=== PATIENT | male | born 1985 | race Caucasian/White ===

== ENCOUNTER 2021-12-17 14:50 | Emergency (ER) | payer MEDICARE, MEDICAID, SELFPAY ==
--- NOTE | 2021-12-17 14:58 | ECG_ITS ---
Test Reason : palpatations Blood Pressure : / mmHG Vent. Rate : 116 BPM Atrial Rate : 116 BPM P-R Int : 118 ms QRS Dur : 084 ms QT Int : 304 ms P-R-T Axes : 058 067 000 degrees QTc Int : 422 ms Sinus tachycardia Nonspecific T wave abnormality Abnormal ECG When compared with ECG of 15-OCT-2015 02:03, No significant change was found Referred By: Generic ED Physician Electronically Signed By:JENN HARPER MD
[2021-12-17 14:59] VITALS: BP 159/80; PULSE 113; RESP 26; TEMP 36.3; O2SAT 97; BMI 28.1
[2021-12-17 15:27] LABS: MANUAL DIFF FLAG NO
[2021-12-17 15:29] LABS: Basophils Percent Auto 0.3 % (0-2); Eosinophils Absolute Auto 0.1 X10*3/uL (0.0-0.4); Eosinophils Percent Auto 1.6 % (0-4); Hematocrit 46.1 % (42.0-52.0); Hemoglobin 15.7 g/dl (14.0-18.0); Imm Gran Abs Auto 0.01 X10*3/uL (0.00-0.03); Imm Gran Pct Auto 0.1 % (0.0-0.4); Lymphocytes Absolute Auto 2.7 X10*3/uL (1.2-4.9); Lymphocytes Percent Auto 39.7 % (20-40); Mean Corpuscular HGB Conc 34.1 g/dl (31.0-36.0); Mean Corpuscular Hemoglobin 31.3 pg (27.0-33.0); Mean Corpuscular Volume 91.8 fL (80.0-98.0); Mean Platelet Volume 9.9 fL (9.4-12.4); Monocytes Absolute Auto 0.5 X10*3/uL (0.1-1.2); Monocytes Percent Auto 7.4 % (2-11); Neutrophils Absolute Auto 3.5 x10*3/uL (2.0-8.3); Neutrophils Percent Auto 50.9 % (45-73); Platelet Count 215 X10*3/uL (160-400); Red Blood Count 5.02 X10*6/uL (4.60-5.80); Red Cell Distribution Width 13.2 % (11.0-16.0); White Blood Count 6.9 X10*3/uL (4.8-10.8)
--- NOTE | 2021-12-17 15:42 | ED.ANXIETY ---
HPI - Anxiety General Chief Complaint: Anxiety Stated Complaint: chest pains Time Seen by Provider: 12/17/21 15:41 Source: patient Mode of arrival: ambulatory Limitations: no limitations History of Present Illness HPI narrative: 36 y/o male presenting to the ER with increasing anxiety and a panic attack associated with chest pains and palpitations. Patient has a history of anxiety and panic attacks intermittently for the last 4 years. He was previously on Ativan but ?came off cold turkey? because he has been going through a court case with his ex for custody of his 5-year-old son. He states this been a 14 month bender for custody and he has been doing everything in his power to gain custody of his son. This recently ended and he 1 the case. He states as soon as he was given custody he had a ?flood of emotions? with increased anxiety. He has a therapist that he talks to once a week or once every other week and he also has a psychiatrist. He is not currently on any medications but he is open to talking about this with his psychiatrist now that the court cases over. He denies any suicidal homicidal ideation and has very future oriented discussions about raising his son. He denies any drugs or alcohol use. MD complaint: anxiety, heart racing and shortness of breath Onset (ago): day(s) Symptoms: dyspnea, chest pain, palpitations and sense of impending doom Severity: moderate Quality: improving Place: work History of similar episodes: Yes Provoking factors: emotional stress Relieving factors: medication and deep breaths Exacerbating factors: thinking about event Associated symptoms: chest pain, shortness of breath and palpitations Related Data Previous Rx's Medication Instructions Recorded lorazepam 1 mg tablet (Ativan) 1 mg PO BID PRN #6 tab 12/17/21 Allergies Allergy/AdvReac Type Severity Reaction Status Date / Time No Known Allergies Allergy Verified 12/17/21 14:59 [No Known Allergies*] Review of Systems Review of Systems: Constitutional: No Fever, No Chills ENT/Mouth: No sore throat, No Rhinorrhea, No Swallowing Difficulty Eyes: No vision changes Cardiovascular: + Chest Pain, + SOB Respiratory: No Cough, No Sputum, No Wheezing, No dyspnea Gastrointestinal: No Nausea, No Vomiting, No Diarrhea, No abdominal Pain Genitourinary: No Dysuria, No Urinary Frequency, No Hematuria Musculoskeletal: No joint pain, No Myalgias Skin: No Skin Lesions, No rash Neuro: No Weakness, No Numbness, No Dizziness, No Headache Psych: + Anxiety/Panic, No Depression, No SI, No HI, No AH, No VH Heme/Lymph: No Bruising, No Lymphadenopathy [facility] Social History Social History Advance Directives: No Advance Directives Information Provided: No Physical Exam Vital Signs: Vital Signs: Last Vital Signs Temp 97.3 F 12/17/21 14:59 Pulse 88 12/17/21 16:29 Resp 18 12/17/21 16:29 BP 135/83 12/17/21 16:29 Pulse Ox 96 12/17/21 16:29 BMI result Body Mass Index 28.1 Appearance: Alert. Oriented X3. No acute distress. Eyes: Pupils equal, round and reactive to light. ENT: Pharynx normal. Neck: Normal inspection. Neck supple. CVS: Tachycardic, regular rhythm, heart rate 110. Pulses normal. Respiratory: No respiratory distress. Breath sounds normal. Skin: Skin warm and dry. Normal skin color. Normal skin turgor. No rashes. Extremities: No lower extremity edema. Neuro/psych: Oriented X 3. No motor deficit. No sensory deficit. CN II-XII intact. anxious, hyperverbal and emotion but insight and judgment are good. no SI. Course Course Course Narrative: 36 y/o male presents to the ER with acute anxiety and panic attack associated with chest pains. He is going through significant stress and recently ended a custody bender with his son and won. He is overwhelmed and had a flood of emotions. Previously on ativan but has been off for years now. He has an established therapist and psychiatrist. He is open to restarting on medications now that his court case is over. Will give a dose of PO ativan now for acute anxiety and reassess. He has no SI or HI, anticiapate he will be able to be discharged home once symptoms improve. Reevaluation(s) Reevaluation #1: EKG ok. trop negative. improved symptoms after ativan. VS normalized. He is stable for d/c home with plan to follow up with his therapist and psychiatrist. MDM - Anxiety Medical Records Attestation: I reviewed the patient's medical records. Lab Data Attestation: I reviewed the patient's lab results. Result diagrams: 12/17/21 15:21 12/17/21 15:21 Labs: Lab Results 12/17/21 12/17/21 12/17/21 Range/Units 15:21 15:21 15:21 WBC 6.9 (4.8-10.8) X10*3/uL RBC 5.02 (4.60-5.80) X10*6/uL Hgb 15.7 (14.0-18.0) g/dl Hct 46.1 (42.0-52.0) % MCV 91.8 (80.0-98.0) fL MCH 31.3 (27.0-33.0) pg MCHC 34.1 (31.0-36.0) g/dl RDW 13.2 (11.0-16.0) % Plt Count 215 (160-400) X10*3/uL MPV 9.9 (9.4-12.4) fL Immature Gran % (Auto) 0.1 (0.0-0.4) % Neut % (Auto) 50.9 (45-73) % Lymph % (Auto) 39.7 (20-40) % [place] % (Auto) 7.4 (2-11) % Eos % (Auto) 1.6 (0-4) % Baso % (Auto) 0.3 (0-2) % Lymph # (Auto) 2.7 (1.2-4.9) X10*3/uL [place] # (Auto) 0.5 (0.1-1.2) X10*3/uL Eos # (Auto) 0.1 (0.0-0.4) X10*3/uL Baso # (Auto) 0.0 (0.0-0.2) X10*3/uL Abs Immat Gran (auto) 0.01 (0.00-0.03) X10*3/uL Absolute Neuts (auto) 3.5 (2.0-8.3) x10*3/uL Absolute Nucleated RBC 0.000 (0.0-0.012) X10*3/uL Nucleated RBC % (auto) 0.0 (0.0-0.2) /100WBC Sodium 140 (135-145) mmol/L Potassium 4.0 (3.3-5.1) mmol/L Chloride 106 (96-108) mmol/L Carbon Dioxide 25 (22-29) mmol/L Anion Gap 13 (12-20) BUN 12 (9-16) mg/dL Creatinine 1.23 (0.5-1.4) mg/dL Estim Creat Clear Calc 88.4 Estimated GFR > 60 Random Glucose 134 H (60-115) mg/dL Calcium 9.9 (8.4-10.2) mg/dL Total Bilirubin 0.4 (0.0-1.0) mg/dL AST 31 (5-37) U/L ALT 62 H (0-40) U/L Alkaline Phosphatase 88 (39-117) U/L Troponin I High Sens < 3.5 (<3.5-35.0) ng/L Total Protein 7.7 (6.5-8.0) g/dL Albumin 4.7 (3.5-5.0) g/dL ECG Data Attestation: I personally reviewed and interpreted this ECG as follows: ECG interpretation date: 12/17/21 ECG interpretation time: 16:02 Interpretation: sinus tachycardia, HR 116 bpm, nonspecific T wave abnormality, no significant change from prior 2016 Critical Care Time Critical Care Time Critical Care Time: No Discharge Plan Discharge Clinical Impression: Acute anxiety Patient Disposition: Home, Self-Care Instructions: Anxiety (ED) Additional Instructions: Your lab workup today was normal. Your EKG was normal. Recommend following up with your therapist and psychiatrist as soon as possible Take the prescribed medication as needed for anxiety - do not drive after taking this medication If you develop new or worsening symptoms call 911 or come back to the ER for further evaluation. Prescriptions: New lorazepam [Ativan] 1 mg tablet 1 mg PO BID PRN (Reason: anxiety) Qty: 6 0RF Referrals: Gabriel Morse MD [Primary Care Provider] - 2 days (anxiety) Stand Alone Forms: Work/School Release Interventions: ED Discharge Assessment Last Done: 12/17/21 16:42
[2021-12-17 15:46] LABS: Alanine Aminotransferase 62 U/L (0-40); Albumin Level 4.7 g/dL (3.5-5.0); Alkaline Phosphatase 88 U/L (39-117); Anion Gap 13 (12-20); Aspartate Amino Transferase 31 U/L (5-37); Bilirubin Total 0.4 mg/dL (0.0-1.0); Blood Urea Nitrogen 12 mg/dL (9-16); Calcium 9.9 mg/dL (8.4-10.2); Carbon Dioxide 25 mmol/L (22-29); Chloride 106 mmol/L (96-108); Creatinine Clr Calc Pharmacy 88.4; Estimated Glomerular Filt Rate > 60; Glucose Random 134 mg/dL (60-115); Sodium 140 mmol/L (135-145); Total Protein 7.7 g/dL (6.5-8.0)
[2021-12-17 15:49] LABS: Troponin-I High Sensitivity < 3.5 ng/L (<3.5-35.0)
[2021-12-17] MEDS: LORazepam 1 MG TABLET PO (15:55)
[2021-12-17 16:29] VITALS: BP 135/83; PULSE 88; RESP 18; O2SAT 96
== END 2021-12-17 16:42 | disposition home or self-care (01) ==
LOC: HO.ED 16:07
PROVIDERS: Emergency Provider Emergency Medicine; PCP Internal Medicine
DX: F41.9 Anxiety disorder, unspecified (principal); R06.02 Shortness of breath; Z72.89 Other problems related to lifestyle; Z65.3 Problems related to other legal circumstances
CPT/HCPCS: 36415; 80053; 84484; 85025; 93005; 99283

== ENCOUNTER 2021-12-28 10:19 | Emergency (ER) | payer MEDICARE, MEDICAID, SELFPAY ==
--- NOTE | ~2021-12-28 | XR_ITS ---
EXAMINATION: XR CHEST CLINICAL INFORMATION: Dyspnea COMPARISON: 05/15/2015 TECHNIQUE: 2 views of the chest were obtained. FINDINGS: Lungs are well-inflated and clear. Trachea is midline in position. No interstitial disease, consolidation or mass. No pulmonary edema, pleural effusion or pneumothorax. Cardiac silhouette and pulmonary vessels are normal in size. The mediastinum and bradley have normal contour. The visualized bones and upper abdomen are unremarkable. XR/XR chest 2V IMPRESSION: No acute cardiopulmonary abnormality. No radiographic evidence of pneumonia.
[2021-12-28 10:23] VITALS: BP 121/54; PULSE 96; RESP 18; TEMP 36.1; O2SAT 97; BMI 27.3
--- NOTE | 2021-12-28 10:39 | ED_ITS ---
HPI - SOB/Dyspnea General Chief Complaint: General Medical Stated Complaint: diff breathing Time Seen by Provider: 12/28/21 10:30 Source: patient Mode of arrival: ambulatory Limitations: no limitations History of Present Illness MD elicited complaint: shortness of breath (feels a pulse in left side of his chest, aware of heart beating) Pertinent past history: other (untreated anxiety) Onset (ago): week(s) Timing: intermittent Severity: mild Exacerbating factors: nothing Relieving factors: nothing Known history of: other (anxiety) Associated symptoms: chest pain and palpitations Treatment prior to arrival: none Related Data Previous Rx's Medication Instructions Recorded lorazepam 1 mg tablet (Ativan) 1 mg PO BID PRN #6 tab 12/17/21 Allergies Allergy/AdvReac Type Severity Reaction Status Date / Time No Known Allergies Allergy Verified 12/28/21 10:26 [No Known Allergies*] Review of Systems Review of Systems: Constitutional : No Fever, No Chills ENT/Mouth : No sore throat, No Rhinorrhea, No Swallowing Difficulty Eyes: No Eye Pain, No Swelling, No Redness Cardiovascular : pos Chest Pain, positive SOB, No Orthopnea, no Edema Respiratory : No Cough, No Sputum, No Wheezing, positive dyspnea Gastrointestinal : No Nausea, No Vomiting, No Diarrhea, No abdominal Pain, No Hematochezia, No Melena Genitourinary : No Dysuria, No Urinary Frequency, No Hematuria Musculoskeletal : No joint pain, No Myalgias Skin : No Skin Lesions, No rash Neuro : No Weakness, No Numbness, No Dizziness, No Headache Psych : No Anxiety/Panic, No Depression Heme/Lymph: No Bruising, No Lymphadenopathy Endocrine : No Polyuria, No Polydipsia All other systems reviewed and are negative [facility] Past Medical History Attestation statement: The following information was validated with the patient. Medical History (Updated 12/28/21 @ 11:28 by Estefanía Nguyen DO) Anxiety Asthma Social History Social History (Updated 12/28/21 @ 10:51 by Estefanía Nguyen DO) Patient Tobacco Use Status: Never used Tobacco Use of substances other than those prescribed or required for medical reasons: No Advance Directives: No Advance Directives Information Provided: Yes Physical Exam Vital Signs: Vital Signs: Last Vital Signs Temp 97 F 12/28/21 10:23 Pulse 96 12/28/21 10:23 Resp 18 12/28/21 10:23 BP 121/54 L 12/28/21 10:23 Pulse Ox 97 12/28/21 10:23 BMI result Body Mass Index 27.3 Appearance: Alert. Oriented X3. No acute distress. Anxious Eyes: Pupils equal, round and reactive to light. ENT: Pharynx normal. Neck: Normal inspection. Neck supple. CVS: Normal heart rate and rhythm. Pulses normal. Respiratory: No respiratory distress. Breath sounds normal. Abdomen: Soft and non-tender. Skin: Skin warm and dry. Normal skin color. Normal skin turgor. Extremities: No lower extremity edema. No calf ttp Neuro: Oriented X 3. No motor deficit. No sensory deficit. Course Course Course Narrative: negative workup stable for DC MDM - SOB/Dyspnea MDM Narrative Medical decision making narrative: 36 yo male with hx of untreated anxiety and asthma comes in with weeks of noticing his heart pumping feeling palpitations and some L sided pain. He feels he is acutely aware of his heart beating. At this time he is PERC negative has no ACS risk factors - will obtain EKG, CXR, troponin x 1. He thinks it could be related to smoking off a dirty pipe x 1 6 years ago. Possibly anxiety. Dispo per results and findings. Lab Data Result diagrams: 12/28/21 10:54 12/28/21 10:54 Labs: Lab Results 12/28/21 12/28/21 12/28/21 Range/Units 10:54 10:54 10:54 WBC 5.4 (4.8-10.8) X10*3/uL RBC 5.07 (4.60-5.80) X10*6/uL Hgb 15.8 (14.0-18.0) g/dl Hct 46.8 (42.0-52.0) % MCV 92.3 (80.0-98.0) fL MCH 31.2 (27.0-33.0) pg MCHC 33.8 (31.0-36.0) g/dl RDW 13.4 (11.0-16.0) % Plt Count 188 (160-400) X10*3/uL MPV 10.0 (9.4-12.4) fL Immature Gran % (Auto) 0.2 (0.0-0.4) % Neut % (Auto) 53.5 (45-73) % Lymph % (Auto) 34.7 (20-40) % [place] % (Auto) 9.4 (2-11) % Eos % (Auto) 2.0 (0-4) % Baso % (Auto) 0.2 (0-2) % Lymph # (Auto) 1.9 (1.2-4.9) X10*3/uL [place] # (Auto) 0.5 (0.1-1.2) X10*3/uL Eos # (Auto) 0.1 (0.0-0.4) X10*3/uL Baso # (Auto) 0.0 (0.0-0.2) X10*3/uL Abs Immat Gran (auto) 0.01 (0.00-0.03) X10*3/uL Absolute Neuts (auto) 2.9 (2.0-8.3) x10*3/uL Absolute Nucleated RBC 0.000 (0.0-0.012) X10*3/uL Nucleated RBC % (auto) 0.0 (0.0-0.2) /100WBC Sodium 140 (135-145) mmol/L Potassium 4.1 (3.3-5.1) mmol/L Chloride 108 (96-108) mmol/L Carbon Dioxide 24 (22-29) mmol/L Anion Gap 12 (12-20) BUN 11 (9-16) mg/dL Creatinine 0.96 (0.5-1.4) mg/dL Estim Creat Clear Calc 103.9 Estimated GFR > 60 Random Glucose 89 (60-115) mg/dL Calcium 9.5 (8.4-10.2) mg/dL Troponin I High Sens < 3.5 (<3.5-35.0) ng/L ECG Data Attestation: I personally reviewed and interpreted this ECG as follows: ECG interpretation date: 12/28/21 ECG interpretation time: 10:48 Interpretation: Rate: 69 Rhythm: NSR [place]: normal Normal P waves. Normal HELENE. Normal QRS complex. ST T wave : normal no SREE qTC: normal prior studies: no acute ischemia The study has been interpreted contemporaneously by me. . Discharge Plan Discharge Clinical Impression: Acute dyspnea, Chest pain Patient Disposition: Home, Self-Care Instructions: Chest Pain (ED), Dyspnea (ED) Additional Instructions: return to ED for any worsening symptoms or concerns normal EKG, normal chest xray, heart marker tests negative Prescriptions: No Action lorazepam [Ativan] 1 mg tablet 1 mg PO BID PRN (Reason: anxiety) Qty: 6 0RF Referrals: Physician,Unknown J [Primary Care Provider] - 2 days (your primary care doctor if this does not get better) Stand Alone Forms: Work/School Release
--- NOTE | 2021-12-28 10:40 | ECG_ITS ---
Test Reason : DYSPNEA Blood Pressure : / mmHG Vent. Rate : 069 BPM Atrial Rate : 069 BPM P-R Int : 124 ms QRS Dur : 086 ms QT Int : 364 ms P-R-T Axes : 060 077 038 degrees QTc Int : 390 ms Normal sinus rhythm Normal ECG When compared with ECG of 17-DEC-2021 14:56, Vent. rate has decreased BY 47 BPM Non-specific change in ST segment in Lateral leads Nonspecific T wave abnormality has replaced inverted T waves in Inferior leads Referred By: Estefanía Nguyen Electronically Signed By:Enrrique Hess
[2021-12-28 10:58] LABS: MANUAL DIFF FLAG NO
--- NOTE | 2021-12-28 10:58 | PC.NURSE ---
pt tearful during EKG and blood draw, reported to this RN that he is nervous . reports he does not have the means to be here all day as he has to get home to his son.
[2021-12-28 11:00] LABS: Basophils Percent Auto 0.2 % (0-2); Eosinophils Absolute Auto 0.1 X10*3/uL (0.0-0.4); Hematocrit 46.8 % (42.0-52.0); Hemoglobin 15.8 g/dl (14.0-18.0); Imm Gran Abs Auto 0.01 X10*3/uL (0.00-0.03); Imm Gran Pct Auto 0.2 % (0.0-0.4); Lymphocytes Absolute Auto 1.9 X10*3/uL (1.2-4.9); Lymphocytes Percent Auto 34.7 % (20-40); Mean Corpuscular HGB Conc 33.8 g/dl (31.0-36.0); Mean Corpuscular Hemoglobin 31.2 pg (27.0-33.0); Mean Corpuscular Volume 92.3 fL (80.0-98.0); Monocytes Absolute Auto 0.5 X10*3/uL (0.1-1.2); Monocytes Percent Auto 9.4 % (2-11); Neutrophils Absolute Auto 2.9 x10*3/uL (2.0-8.3); Neutrophils Percent Auto 53.5 % (45-73); Platelet Count 188 X10*3/uL (160-400); Red Blood Count 5.07 X10*6/uL (4.60-5.80); Red Cell Distribution Width 13.4 % (11.0-16.0); White Blood Count 5.4 X10*3/uL (4.8-10.8)
[2021-12-28 11:14] LABS: Anion Gap 12 (12-20); Blood Urea Nitrogen 11 mg/dL (9-16); Calcium 9.5 mg/dL (8.4-10.2); Carbon Dioxide 24 mmol/L (22-29); Chloride 108 mmol/L (96-108); Creatinine Clr Calc Pharmacy 103.9; Estimated Glomerular Filt Rate > 60; Glucose Random 89 mg/dL (60-115); Potassium 4.1 mmol/L (3.3-5.1); Sodium 140 mmol/L (135-145)
[2021-12-28 11:19] LABS: Troponin-I High Sensitivity < 3.5 ng/L (<3.5-35.0)
== END 2021-12-28 12:02 | disposition home or self-care (01) ==
PROVIDERS: Emergency Provider Emergency Medicine
DX: R07.9 Chest pain, unspecified (principal); R06.00 Dyspnea, unspecified; J45.909 Unspecified asthma, uncomplicated; F41.9 Anxiety disorder, unspecified
CPT/HCPCS: 36415; 71046; 80048; 84484; 85025; 93005; 99283

== ENCOUNTER 2022-01-20 11:01 | Emergency (ER) | payer MEDICARE, MEDICAID, SELFPAY ==
--- NOTE | ~2022-01-20 | CT_ITS ---
EXAMINATION: CT HEAD WITHOUT CONTRAST CT CERVICAL SPINE WITHOUT CONTRAST CLINICAL INFORMATION: Reason for Exam Intermittent headaches/right-sided neck COMPARISON: None. TECHNIQUE: Imaging was performed from the skull base to vertex without intravenous administration of contrast. In addition, helical noncontrast CT imaging was acquired through the cervical spine and source images were reviewed along with axial reconstructions and sagittal and coronal MPRs. This CT examination was performed using dose optimization techniques as appropriate, variously including the following: *Automated exposure control. *Adjustment of mA and/or kV according to patient size (this includes techniques or standardized protocols for targeted exams where dose is matched to indication/reason for exam; i.e. extremities or head). *Use of iterative reconstruction technique. Total exam dose-length product 1251 mGy-cm FINDINGS: HEAD: No intracranial mass, hemorrhage, or midline shift is visualized. The ventricles and sulci are unremarkable. No extra-axial collections are identified. The paranasal sinuses and mastoid air cells are well aerated. CERVICAL SPINE: There is nonspecific straightening of the cervical spine present with mild degenerative disc disease at C5-C6. There is no evidence of acute cervical spine fracture. Vertebral bodies remain normal in height, and alignment is anatomic. No prevertebral or paravertebral soft tissue abnormality is identified. Limited assessment of the lung apices is unremarkable. CT/CT cervical spine wo con IMPRESSION: 1. No acute intracranial pathology. 2. No CT evidence of acute cervical spine fracture or traumatic subluxation.
--- NOTE | ~2022-01-20 | CT_ITS ---
EXAMINATION: CT HEAD WITHOUT CONTRAST CT CERVICAL SPINE WITHOUT CONTRAST CLINICAL INFORMATION: Reason for Exam Intermittent headaches/right-sided neck COMPARISON: None. TECHNIQUE: Imaging was performed from the skull base to vertex without intravenous administration of contrast. In addition, helical noncontrast CT imaging was acquired through the cervical spine and source images were reviewed along with axial reconstructions and sagittal and coronal MPRs. This CT examination was performed using dose optimization techniques as appropriate, variously including the following: *Automated exposure control. *Adjustment of mA and/or kV according to patient size (this includes techniques or standardized protocols for targeted exams where dose is matched to indication/reason for exam; i.e. extremities or head). *Use of iterative reconstruction technique. Total exam dose-length product 1251 mGy-cm FINDINGS: HEAD: No intracranial mass, hemorrhage, or midline shift is visualized. The ventricles and sulci are unremarkable. No extra-axial collections are identified. The paranasal sinuses and mastoid air cells are well aerated. CERVICAL SPINE: There is nonspecific straightening of the cervical spine present with mild degenerative disc disease at C5-C6. There is no evidence of acute cervical spine fracture. Vertebral bodies remain normal in height, and alignment is anatomic. No prevertebral or paravertebral soft tissue abnormality is identified. Limited assessment of the lung apices is unremarkable. CT/CT head/brain wo con IMPRESSION: 1. No acute intracranial pathology. 2. No CT evidence of acute cervical spine fracture or traumatic subluxation.
[2022-01-20 11:46] VITALS: BP 129/83; PULSE 92; RESP 18; TEMP 37.1; O2SAT 98; BMI 28.8
[2022-01-20] MEDS: Lidocaine HCl 2 % MPF 5 ML VIAL SUBCUT ×2 (14:55)
--- NOTE | 2022-01-20 14:57 | ED_ITS ---
HPI - Skin/Abscess/Foreign Bdy General Chief complaint: Skin/Abscess/Foreign Body Stated complaint: R thigh swelling Time Seen by Provider: 01/20/22 14:31 Source: patient Mode of arrival: ambulatory Limitations: no limitations History of Present Illness HPI narrative: 36-year-old male presenting to the ED with complaints of an abscess to the right groin that he noticed over the past few days worse today. Also reports that over the past few months he has been having right-sided neck pain that radiates to the right side of his forehead and he is concerned ?I think I have a tumor growing and I am freaking myself out?. Denies any fevers, chills, dizziness, neck stiffness, chest pain shortness of breath, drainage from the site, rashes, history of MRSA or any other symptoms complaints or concerns at this time. MD complaint: abscess/boil Onset (ago): day(s) (Past few days worse today) Location: genitals (Right Groin ) Severity: moderate Quality: aching and constant Pain Consistency: constant Relieving factors: none Exacerbating factors: palpation Context: none Associated symptoms: denies other symptoms Treatments prior to arrival: none Related Data Previous Rx's Medication Instructions Recorded lorazepam 1 mg tablet (Ativan) 1 mg PO BID PRN #6 tab 12/17/21 acetaminophen 500 mg tablet 1,000 mg PO QID PRN #14 tab 01/20/22 (Tylenol Extra Strength) cephalexin 500 mg capsule 500 mg PO Q6H 10 Days #40 cap 01/20/22 doxycycline hyclate 100 mg tablet 100 mg PO BID 10 Days #20 tab 01/20/22 Allergies Allergy/AdvReac Type Severity Reaction Status Date / Time No Known Allergies Allergy Verified 12/28/21 10:26 [No Known Allergies*] Review of Systems Review of Systems: Constitutional : Denies history of same, Denies any other sites involved, Denies IV drug use, Denies history of MRSA, Denies swollen glands, Denies injury, Denies Fever, Denies Chills, + Sig Pain, Denies Systemic symptoms Cardiovascular : No Chest Pain, No SOB Respiratory : No Dyspnea Gastrointestinal : No abdominal pain Musculoskeletal : +Neck Pain, No Joint Swelling Skin : + abscess, No surrounding erythema, No skin laceration, No Foreign bodies, No spreading rash, Denies bites, Denies discharge, Neuro : + intermittent headaches, No Weakness, No Numbness/tingling Psych : No SI/HI/thoughts of self injury Yes all other systems are reviewed and are negative [facility] Past Medical History Attestation statement: The following information was validated with the patient. Medical History Anxiety Asthma Social History Social History Patient Tobacco Use Status: Never used Tobacco Advance Directives: No Advance Directives Information Provided: Yes Physical Exam Vital Signs: Vital Signs: Last Vital Signs Temp 98.7 F 01/20/22 11:46 Pulse 92 01/20/22 11:46 Resp 18 01/20/22 11:46 BP 129/83 01/20/22 11:46 Pulse Ox 98 01/20/22 11:46 BMI result Body Mass Index 28.8 vital signs have been reviewed as normal and appeared to be correct. Blood pressure normal. Heart rate normal. Respiration rate normal. Temperature normal. Oxygen saturation normal. Appearance: Alert. Oriented X3. No acute distress. Head: Normal external exam. Normocephalic. Atraumatic. Eyes: PERRLA. EOMI. Conjunctiva and sclera normal. Eyelids normal. ENT: Pharynx normal. Uvula midline. Moist mucous membranes. No lesions/ulcerati ons or masses noted on the tongue. Normal voice. No trismus noted. No drooling noted. No muffled voice noted. Neck: Normal inspection. Neck supple. FROM. No adenopathy. Thyroid Normal. No meningeal signs. No neck mass noted. CVS: Normal heart rate and rhythm. Heart sound normal. Pulses normal throughout. No murmurs/rales/gallops. Respiratory: No respiratory distress. Painless inspiration. Breath sounds normal. No wheezes/rales/rhonchi noted. Chest nontender. No signs of trauma noted. No accessory muscle usage noted or decreased air movement noted. Back: Full range of motion noted. Nontender. Patient neuro intact bilaterally and distally on all 4 extremities. Patient's reflexes intact bilaterally and distally on all 4 extremities. No rashes/lesion/induration/fluctuance or signs of infection noted. Skin: Skin warm and dry. Normal skin color. Normal skin turgor. To Right To right Groin c fluctuance with No surrounding erythema/streaking/foreign bodies or purulent drainage noted at this time. No additional rashes/lesions/lacerations noted. Extremities: Extremities exhibit normal range of motion and nontender. Neuro: Oriented X 3. No motor deficit. No sensory deficit. Reflexes normal. Normal steady gait. No focal neuro deficits noted. CN's II-XII intact bilaterally? Vascular: + radial pulses/+ 2 distal pedal pulses/+2 dorsalis pedis b/l. Normal cap refill. No cyanosis noted to upper extremity nails and lower extremity toes nails. Course Course Course Narrative: IMP/Plan: abscess. No systemic toxicity, and pt looks well. No surrounding cellulitis. Not c/w nec fasc/ myositis/ DVT/ osteomyelitis. patient now status post I&D of abscess and patient tolerated procedure well. No complications. No labs indicated at this time. Although patient requesting CT scan of brain/cervical spine to evaluate his intermittent headaches and neck pain therefore ordered at this time. Is CT scan of brain/cervical spine is negative patient will be discharged with symptomatic treatment and antibiotics for his abscess and instructions return if any new or worsening symptoms. Patient understands agrees with this plan. MDM - Skin/Abscess/Foreign Bdy Medical Records Attestation: I reviewed the patient's medical records. Imaging Data CT scan of brain/cervical spine: Attestation: I personally reviewed and interpreted this imaging study as follows: Radiologist's impression: FINDINGS: HEAD: No intracranial mass, hemorrhage, or midline shift is visualized. The ventricles and sulci are unremarkable. No extra-axial collections are identified. The paranasal sinuses and mastoid air cells are well aerated. CERVICAL SPINE: There is nonspecific straightening of the cervical spine present with mild degenerative disc disease at C5-C6. There is no evidence of acute cervical spine fracture. Vertebral bodies remain normal in height, and alignment is anatomic. No prevertebral or paravertebral soft tissue abnormality is identified. Limited assessment of the lung apices is unremarkable. CT/CT cervical spine wo con IMPRESSION: 1. No acute intracranial pathology. 2. No CT evidence of acute cervical spine fracture or traumatic subluxation. Discharge Plan Discharge Clinical Impression: Abscess of skin or subcutaneous tissue, Intermittent headache, Neck pain on right side, Left against medical advice Patient Disposition: Left Against Medical Advice Instructions: General Headache (ED), Neck Pain (ED), Abscess Incision and Drainage (DC) Additional Instructions: We ordered a CT scan of your brain and your neck although you did not want wait for the results this is why he will be leaving against medical advice if anything is abnormal we will call you immediately. Return if any new or worsening symptoms. Follow up with her primary care provider. Prescriptions: New doxycycline hyclate 100 mg tablet 100 mg PO BID 10 Days Qty: 20 0RF cephalexin 500 mg capsule 500 mg PO Q6H 10 Days Qty: 40 0RF acetaminophen [Tylenol Extra Strength] 500 mg tablet 1,000 mg PO QID PRN (Reason: fever or pain) Qty: 14 0RF No Action lorazepam [Ativan] 1 mg tablet 1 mg PO BID PRN (Reason: anxiety) Qty: 6 0RF Referrals: Gabriel Morse MD [Primary Care Provider] - 2 days Stand Alone Forms: Work/School Release Interventions: ED Discharge Assessment Last Done: 01/20/22 15:42 Discharge Date/Time: 01/20/22 15:43 Print Language: Green[place]ic
--- NOTE | 2022-01-20 15:41 | PC.NURSE ---
PT LEAVING AMA, WANTS US TO CALL HIM WITH CT RESULTS.
== END 2022-01-20 15:43 | disposition left against medical advice (07) ==
PROVIDERS: Emergency Provider Emergency Medicine; PCP Internal Medicine
DX: L02.214 Cutaneous abscess of groin (principal); R51.9 Headache, unspecified; M54.2 Cervicalgia; J45.909 Unspecified asthma, uncomplicated
CPT/HCPCS: 10060; 70450; 72125; 99283; 99284

== ENCOUNTER 2022-02-08 03:56 | Emergency (ER) | payer MEDICARE, MEDICAID, SELFPAY ==
[2022-02-08 04:01] VITALS: BP 135/80; PULSE 105; O2SAT 98
[2022-02-08 04:05] VITALS: BP 163/93; PULSE 113; RESP 18; TEMP 36.6; O2SAT 98; BMI 21.2
--- NOTE | 2022-02-08 04:18 | PC.NURSE ---
pt yelling out at PD, shouting pt reassured and asked not to yell. once PD was not in sight, pt calmed down, while getting vital signs, pt started to agitate himself to increase his Vital signs, pt asked to relax to which he states he cannot. pt talking to self, calm down, calm down
[2022-02-08 04:22] VITALS: PULSE 100; RESP 16; O2SAT 95
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
[2022-02-08] MEDS: hydrOXYzine HCL 25 MG TABLET PO (05:26)
[2022-02-08 05:49] VITALS: PULSE 78; RESP 16; O2SAT 98
== END 2022-02-08 06:43 ==
PROVIDERS: Emergency Provider Student in an Organized Health Care Education/Training Program
DX: F41.1 Generalized anxiety disorder (principal); F41.0 Panic disorder [episodic paroxysmal anxiety]; F43.0 Acute stress reaction; R06.4 Hyperventilation
CPT/HCPCS: 99284

== ENCOUNTER 2023-03-07 03:40 | Emergency (ER) | payer MEDICARE, MEDICAID, SELFPAY ==
[2023-03-07 04:03] VITALS: BP 156/80; BP 158/60; PULSE 110; PULSE 94; RESP 20; TEMP 36.9; O2SAT 95; BMI 28.9
--- NOTE | 2023-03-07 04:30 | PC.NURSE ---
ambulatory in hallway, restless, wanting to go home. alert, no distress, speech clear/though smells of alcohol. gait steady.
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
[2023-03-07] MEDS: Diphth,Pertus(ACell),Tet Adult 0.5 ML SYRINGE IM (05:03)
== END 2023-03-07 05:19 | disposition left against medical advice (07) ==
LOC: HO.ED 05:00
PROVIDERS: Emergency Provider Emergency Medicine Emergency Medical Services
DX: S09.90XA Unspecified injury of head, initial encounter (principal); S01.511A Laceration without foreign body of lip, initial encounter; Y04.8XXA Assault by other bodily force, initial encounter; Y93.9 Activity, unspecified; Y92.9 Unspecified place or not applicable; Y99.9 Unspecified external cause status
CPT/HCPCS: 90471; 90715; 99284